=== PATIENT | male | born 1950 ===

== ENCOUNTER 2017-09-04 08:27 | Emergency (ER) | payer MEDICARE, MEDICAID ==
[2017-09-04 08:32] VITALS: RESP 18; O2SAT 99
--- NOTE | 2017-09-04 09:34 | C.PDOC ---
History Of Present Illness Patient is a 66 year old male with PMHx arthritis who presents with complaint of right ear pain for past month. He reports swelling in ear that has increased in size. He states pain comes and goes. He reports ear is tender to touch. He denies fever, headache, dizziness. He denies hearing changes. He did not take any medication for the pain in the ear. Time Seen by Provider: 09/04/17 09:14 Chief Complaint (Nursing): ENT Problem History Per: Patient Onset/Duration Of Symptoms: Days Current Symptoms Are (Timing): Still Present Quality (Ear): Pain W/Touch, Swelling. denies: Redness, Discharge, Foreign Body Quality (Mouth/Throat): denies: Tenderness, Swelling, Redness Pain Scale Rating Of: 5 Anticoagulant/Antiplatlet Use?: No Past Medical History Vital Signs: Last Vital Signs Temp 98.4 F 09/04/17 09:49 Pulse 82 09/04/17 09:49 Resp 18 09/04/17 09:49 BP 130/90 09/04/17 09:49 Pulse Ox 99 09/04/17 09:49 - Medical History PMH: Arthritis Surgical History: No Surg Hx Family History: States: Unknown Family Hx - Social History Hx Alcohol Use: Yes Hx Substance Use: No - Immunization History Hx Tetanus Toxoid Vaccination: No Hx Influenza Vaccination: No Hx Pneumococcal Vaccination: No Review Of Systems Constitutional: Negative for: Fever, Chills, Weakness, Malaise Eyes: Negative for: Pain ENT: Positive for: Ear Pain. Negative for: Ear Discharge, Nose Pain, Nose Discharge Cardiovascular: Negative for: Chest Pain, Palpitations Respiratory: Negative for: Cough, Shortness of Breath Gastrointestinal: Negative for: Nausea, Vomiting, Abdominal Pain, Diarrhea Genitourinary: Negative for: Dysuria, Frequency Musculoskeletal: Negative for: Neck Pain, Shoulder Pain, Back Pain Skin: Positive for: Lesions (right ear) Physical Exam - Physical Exam Appears: Well, Non-toxic, No Acute Distress Skin: Normal Color, Warm, Dry Head: Atraumatic, Normacephalic Eye(s): bilateral: PERRL, EOMI Ear(s): Right: Other (0.5cm circular lesion in rip of ear, tender on palpation) Nose: Normal, No Discharge Oral Mucosa: Moist Tongue: Normal Appearing Lips: Normal Appearing Neck: Normal ROM, No Midline Cervical Tenderness, No Paracervical Tenderness, Other (no mastoid tenderness bilaterally) Lymphatic: No Adenopathy Chest: Symmetrical Cardiovascular: Rhythm Regular Respiratory: Normal Breath Sounds Gastrointestinal/Abdominal: Soft, No Tenderness Back: Normal Inspection, No CVA Tenderness Extremity: Normal ROM, No Tenderness Neurological/Psych: Oriented x3, Normal Speech, Normal Cranial Nerves Gait: Steady ED Course And Treatment O2 Sat by Pulse Oximetry: 99 - Incision & Drainage Of Abscess Prep Used: Betadine (Serosanguinous fluid drained from ear lesion) Procedure: Incised W/Scalpel Blade#: (11) Medical Decision Making Medical Decision Making: Very small amount of fluid expressed from right ear lesion. Wound cleaned with betadine. Patient instructed to call ENT office for follow up. Disposition Counseled Patient/Family Regarding: Diagnosis, Need For Followup, Rx Given - Disposition Referrals: Juancho Schultz MD [Staff Provider] - Disposition: HOME/ ROUTINE Disposition Time: 09:40 Condition: GOOD Additional Instructions: Take Keflex four times a day for 7 days. Please call ENT doctor to make appointment for follow up. Please follow up with your primary doctor within the next week. Return to ED if symptoms worsen or reoccur. Prescriptions: Cephalexin [cephalexin] 500 mg PO Q6H #28 cap Instructions: Abscess Incision and Drainage, Abscess Incision and Drainage (DC) Forms: [employer] (Ukrainian) - Clinical Impression Clinical Impression: Ear lesion - PA / DETECTIVE PRIVATE EYE / Resident Statement / has reviewed & agrees with the documentation as recorded. / has examined the patient and agrees with the treatment plan.
[2017-09-04 09:51] VITALS: BP 130/90; PULSE 82; TEMP 98.4
== END 2017-09-04 09:49 | disposition home or self-care (01) ==
LOC: C.ER 08:27
DX: L98.9 Disorder of the skin and subcutaneous tissue, unspecified (principal)